=== PATIENT | female | born 1930 | race Caucasian/White ===

== ENCOUNTER 2017-03-11 06:53 | Day surgery (SDC) | payer MEDICARE, OTHER ==
[~2017-03-11] VITALS: Ht 157.5 cm; Wt 63.3 kg
[2017-03-11] VITALS (9 sets, daily range): BP systolic 106–136; BP diastolic 52–71; PULSE 64–83; RESP 12–20; O2SAT 91–96
[~2017-03-11 06:53] MED LIST: ACET1TAB12 PO; ACET325T51 PO; Bupivacaine Liposome 1.3% 20 mL Inj INFILTRATE ONE; CeFAZolin Inj 2 GM in IV Premix 1 EACH IV ONE; DIAZ2TAB2 PO; Lactated Ringer's 1,000 ML IV SCH; OMEP20CA11 PO
[2017-03-11] MEDS ORDERED: Ondansetron 2 mg/mL 2 mL Inj ONE (06:54)
[2017-03-11] MEDS ORDERED: MetoCLOpramide 5 mg/mL 2 mL Inj ONE (06:54)
[2017-03-11] MEDS ORDERED: Dexamethasone 4 mg/mL Inj ONE (06:54)
[2017-03-11] MEDS ORDERED: Propofol 10,000 mCg/mL 20 mL Inj ONE (06:54)
[2017-03-11] MEDS ORDERED: CeFAZolin 2 Gm/50 mL D5W Duplex Bag IV ONE (07:04)
[2017-03-11] MEDS: Lactated Ringer's 1,000 ML IV SCH ×2 (07:13→09:28)
--- NOTE | 2017-03-11 09:10 | PCM.HPANE ---
Patient Data Surgeon Admitting Provider: Attending Provider:Alexandru Shukla MD Primary Care Physician:Love Maxwell Other Provider:Randal Pimentel Anesthesia Reason for Visit Left Knee Arthritis Ht/WT & BMI Height (Feet): 5 Height (Inches): 2 Weight (Kilograms): 63.3 Body Mass Index 25.00 Allergies Coded Allergies: No Known Allergies (Unverified , 03/05/17) Past Anesthesia History Anesthesia History: Denies:: Abnormal Airway, Anesthesia Reactions, Difficult Intubation, Fam Anesthesia Reaction, Fam Malignant Hypertherm, Malignant Hyperthermia Diabetes History Hx Diabetes?: No MRSA MRSA: No Medications Hypertension Medication: No Home Meds Incl Beta Marcell: No Reported Medications Acetaminophen/Codeine 300-30mg (Tylenol/Codeine #3)1 Each Tablet1 Tablet PO Q4H PRN Pain Ref 0 03/05/17 Acetaminophen 325 Mg [id number] Mg PO Q4H PRN For Fever Ref 0 03/05/17 Omeprazole 20 Mg Capsule.dr20 Mg PO TID Ref 0 03/05/17 Diazepam 2 Mg Tablet2 Mg PO TID PRN For Anxiety Ref 0 03/05/17 History History of ENT Problems?: Yes HEENT History: Positive for:: Hearing Problem Denies:: Abnormal Airway Cataracts Difficult Intubation Dysphagia Glaucoma Sinus Problem TMJ Denture Type: None Teeth Condition: Within Normal Limits Hx of Heart Problems?: Yes Cardiovascular History: Positive for:: Heart Murmur Denies:: AICD Abdominal Aortic Aneurism Atrial Fibrillation Cardiac Surgery Chest Pain Congestive Heart Failure Coronary Artery Disease Edema Hypertension Irregular Heartbeat Pacemaker Peripheral Vascular Rheumatic Fever Thrombophlebitis Valvular Heart Disease Hx of Respiratory Problem?: No Respiratory History: Denies:: Asthma COPD Chest Surgery Cough Dyspnea Emphysema Hemoptysis Oxygen Administration Pneumonia Pulmonary Embolism Tuberculosis Use of C-PAP Machine Use of Inhalers / NEBS Hx Neurologic Problems?: No Hx of GI Problems?: No Gastrointestinal History: Denies:: Cirrhosis Diverticulitis Gall Bladder Disease Gastroesphageal Reflux Gastrointestinal Bleeding Heartburn Hepatitis Hiatal Hernia Liver Disease Rectal Bleeding Hx of Problems?: No Genitourinary History: Denies:: HX of Hemodialysis Kidney Stones Urinary Tract Infection HX of Peritoneal Dialysis: No Skin History: Denies:: History Skin Disorders? Pressure Ulcers Hx Musculoskeletal Problems?: Yes Musculoskeletal History: Positive for:: Back Injury (Hip problems) Osteoarthritis (Lt knee) Denies:: Degenerative Joint Fibromyalgia Joint Replacement Musculoskeletal Trauma Myasthenia Gravis Rheumatoid Arthritis Systemic Lupus Hx Surgeries?: Yes ( x 4) Other History: Positive for:: Hospitalization (50 yrs ago) Denies:: Cancer Endocrine Disease Thyroid Disease History Blood Transfusions: Positive for:: Accept Blood Products? Denies:: Blood Transfusions Hx Diabetes: No Hx Alcohol Use: NoHx Substance Use: No Stop/Bang Treated for Sleep Apnea?: No Do You Have a CPAP Machine?: No S-Snoring: Do You Snore Loudly: No T-Tired: feel tired, fatigued: No O-Obsered: Observed not breath: No P-Blood Pressure: treated: No B- Body Mass Index > 35 kg/m2: No A- Age over 50: Yes N- Neck Large Circumference: No G- Gender Male: No ALON Total Score: 1 ALON Risk Assessment: Low Risk, <3 Yes Risk Assessment Category Category 1A: Patient has history of documented sleep apnea, and HAS NOT received any narcotic, sedative or anesthesia administration during this stay. Category 1B: Patient has history of documented sleep apnea, and HAS received any narcotic , sedative or anesthesia administration during this stay Category 2: Patient has SUSPECTED Obstructive Sleep Apnea, and HAS received any narcotic , sedative or anesthesia administration during this stay. Category 3: Patient has SUSPECTED Obstructive Sleep Apnea and HAS NOT received narcotic, sedative or anesthesia administration during this stay. Category 4: Outpatient in Procedural Areas with known sleep apnea or who screen positive for High Risk via the STOP/BANG questionnaire. Exam Exam Vital Signs Vital Signs Date Time Temp Pulse Resp B/P Pulse Ox O2 Delivery O2 Flow Rate FiO2 03/11/17 07:24 36.6 70 20 125/70 93 Room Air General Appearance: Oriented X3 HEENT/AIRWAY: MP 2 Lungs: Normal Air Movement Heart: Regular Rate/Rhythm Meds/Labs/Diagnostics Admission Meds Current Medications Lactated Ringer's (Lr) 1,000 ml @ 120 mls/hr Q8H20M IV Last administered on t 07:13; Start 03/11/17 at 05:00; Stop 03/11/17 at 13:19 Plan Impression Patient chart reviewed, patient interviewed and anesthestic plan with risks, benefits, and alternatives discussed, and informed consent obtained. ASA Physical Status: ASA2 Mod Systemic Disease Anesthetic Plan: GA Bene/Risks/Altern/Consents: Yes HP Complete Prior to Induction: Yes Kashfi Arenas MD Mar 11, 2017 09:10
[2017-03-11] MEDS ORDERED: Bupivacaine Liposome 1.3% 20 mL Inj ONE (09:18)
[2017-03-11] MEDS ORDERED: Vancomycin Inj 1,000 MG in IV Premix 1 EACH IV ONE (09:50)
[2017-03-11] MEDS ORDERED: Bupivacaine-MPF 0.25%/EPI 30 mL Inj INFILTRATE ONE (10:02)
[2017-03-11] MEDS ORDERED: Gentamicin 40 mg/mL 2 mL Inj IRRIGATION ONE (10:03)
[2017-03-11] MEDS ORDERED: Lactated Ringer's 500 ML IV PRN (10:11)
[2017-03-11] MEDS ORDERED: Lactated Ringer's 1,000 ML IV SCH (10:11)
[2017-03-11] MEDS ORDERED: EPHEDrine Sulfate 50 mg/mL Inj IVPUSH PRN (10:15)
[2017-03-11] MEDS ORDERED: Dexamethasone 4 mg/mL Inj IVPUSH PRN (10:15)
[2017-03-11] MEDS ORDERED: Phenylephrine 10,000 mCg/mL Inj IVPUSH PRN (10:15)
[2017-03-11] MEDS ORDERED: fentaNYL-PF 50 mCg/mL 2 mL Inj IVPUSH PRN (10:15)
[2017-03-11] MEDS ORDERED: Ondansetron 2 mg/mL 2 mL Inj IVPUSH PRN (10:15)
[2017-03-11] MEDS ORDERED: MetoCLOpramide 5 mg/mL 2 mL Inj IVPUSH PRN (10:15)
[2017-03-11] MEDS ORDERED: hydrOXYzine Pamoate 25 mg Capsule PO PRN (10:35)
[2017-03-11] MEDS ORDERED: oxyCODONE-Acetamin 5-325 mg Tablet PO PRN (10:35)
[2017-03-11] MEDS: HYDROmorphone 1 mg/mL Inj IVPUSH PRN ×2 (11:02→11:17)
--- NOTE | 2017-03-11 11:10 | OP ---
[address] [address] OPERATIVE REPORT PATIENT: GURU CURRAN : 1930 MR#: [id number] ADMIT: 03/11/2017 JOB ID: [id number] DATE OF SURGERY: 03/11/2017 SURGEON: Alexandru Shukla MD PREOPERATIVE DIAGNOSIS(ES): Severe medial compartment osteoarthritis both knees. POSTOPERATIVE DIAGNOSIS(ES): Severe medial compartment osteoarthritis both knees. PROCEDURE: Left unicompartmental knee replacement. AIR TRAFFIC CONTROL OPERATOR: Jerson Gardner PA-C. Patent Law Specialist required due to the complexity of the operation. INDICATIONS: Severe progressive disability uncontrolled by conservative treatment techniques. The patient understands the potential risks and complication including progressive arthritis in unresurfaced compartments. PROCEDURE: The patient prepped draped in usual sterile fashion. An anteromedial approach was made. A patellar osteophyte removed. The tibial guide was assembled and a standard tibial cut was made. An 8 mm spacer block was utilized and the distal femoral cut was made. It was 6.5 mm thick. Femur was sized to a 4 chamfer cutting block, fixed in appropriate position. Rotation, drill holes, and chamfer cuts were made. All meniscal tissue and osteophytes were removed from the knee. The tibia was sized to a D tibial component fixed in appropriate position. Rotation and drill holes were made for this. Trial reductions were performed and 8 mm poly was chosen. Pressurized lavage followed by pressurized cementation. Excess cement removed during the curing process. The final construct was assembled. The tourniquet was let down. A deep Hemovac drain was left. Cut margins were injected with Marcaine and Experel. Deep closure with #2 Quill followed by a 2-0 Vicryl, 3-0, and a 4-0 intracuticular stitch. Patient tolerated the procedure well. There were no complications. Taken to the recovery room in stable condition. Standard postoperative plan recommended.
--- NOTE | 2017-03-11 11:15 | DRSVH ---
PROCEDURE: X-RAY LEFT KNEE, ONE OR TWO VIEWS ([id number]) INDICATIONS: 86 year-old female with left knee replacement. TECHNIQUE: 2 postoperative view(s) of the knee acquired. COMPARISON: [facility], CR, XR KNEE ARTHRITIC SERIES LT, 01/07/2017, 10:19. FINDINGS: Bones: Patient is status post medial unicompartmental knee joint arthroplasty. Hardware components are in expected positions. Visualized bony structures are intact. Soft tissues: Overlying postoperative changes are noted including surgical drain, intra-articular ai r and fluid. IMPRESSION: Status post medial unicompartmental left knee arthroplasty, with hardware components in e xpected positions. Dictated by: Ye Cross M.D. on 03/11/2017 at 10:12 Approved by: Ye Cross M.D. on 03/11/2017 at 10:14
--- NOTE | 2017-03-11 11:33 | PCM.ANEP1 ---
Post Anesthesia PACU Phase 1 Assessment Vital Signs Vital Signs Date Time Temp Pulse Resp B/P Pulse Ox O2 Delivery O2 Flow Rate FiO2 03/11/17 11:15 64 14 128/66 93 Nasal Cannula 3 03/11/17 11:00 36.7 66 12 136/71 96 Nasal Cannula 3 03/11/17 10:55 68 16 122/70 94 Nasal Cannula 3.5 03/11/17 10:50 73 16 129/66 92 Nasal Cannula 4 03/11/17 10:48 37.3 125/64 03/11/17 07:24 36.6 70 20 125/70 93 Room Air Anesthetic Administered: GA Level of Alertness: Awake, talking Pain: No Nausea or Vomiting: No CV Function & Hydration Stable: Yes Airway Device: Lungs: Normal Air Movement PACU Phase 2 Assessment Patient Instructions Provided: N/A Kashif Arenas MD Mar 11, 2017 11:33
== END 2017-03-11 23:59 ==
LOC: SAS 06:53 → EDUNIT# 08:45 → SAS 23:59
PROVIDERS: ATTEND Orthopaedic Surgery
DX: M17.0 Bilateral primary osteoarthritis of knee (principal); M81.0 Age-related osteoporosis without current pathological fracture; K27.9 Peptic ulcer, site unspecified, unspecified as acute or chronic, without hemorrhage or perforation
CPT/HCPCS: 27446; 73560; C1713; C1776; J0690; J1100; J1170; J1580; J1885; J2405; J2765; J3370; J7120